=== PATIENT | female | born 1980 | race Caucasian/White ===

== ENCOUNTER 2019-06-23 12:08 | Emergency (ER) | payer BC, OTHER ==
[~2019-06-23] VITALS: Ht 160 cm; Wt 57.0 kg
[2019-06-23] MEDS ORDERED: AMOX875T2 (12:17)
[2019-06-23] MEDS ORDERED: DECONGESTANT (12:17)
[2019-06-23] MEDS ORDERED: TYLENOL 1 GM (12:17)
[2019-06-23] MEDS ORDERED: ALEVE (12:17)
[2019-06-23] MEDS ORDERED: diphenhydrAMINE INJ 50MG/ML VIAL (J1200) IV STA (14:09)
[2019-06-23] MEDS ORDERED: NS 1,000 ML IV ONE (14:15)
[2019-06-23] MEDS ORDERED: METOCLOPRAMIDE INJ 10MG/2ML VIAL (J2765) IV ONE (14:15)
[2019-06-23] MEDS ORDERED: KETOROLAC 30 MG/ML VIAL (J1885) IV ONE (14:15)
[2019-06-23 14:48] LABS: BASO % 0.6 % (0.0-1.0); EOS # 0.1 10^3/uL (0.0-0.5); EOS % 1.9 % (0.0-3.0); HEMATOCRIT 40.2 % (36.0-47.0); HEMOGLOBIN 13.4 g/dl (12.0-15.5); LYMPH # 1.7 10^3/uL (1.5-5.0); MEAN CORPUSCULAR HEMOGLOBIN 31.6 pg (27.0-33.0); MEAN CORPUSCULAR HGB CONC 33.3 g/dl (32.0-36.5); MEAN CORPUSCULAR VOLUME 94.8 fl (80.0-96.0); MONO # 0.3 10^3/uL (0.0-0.8); MONO % 4.9 % (0.0-5.0); NEUTROPHILS # 4.2 10^3/uL (1.5-8.5); NEUTROPHILS % 66.4 % (36.0-66.0); PLATELET COUNT, AUTOMATED 229 10^3/uL (150-450); RED BLOOD COUNT 4.24 10^6/uL (4.00-5.40); WHITE BLOOD COUNT 6.4 10^3/uL (4.0-10.0)
--- NOTE | 2019-06-23 14:53 | REPVR ---
PROCEDURE INFORMATION: Exam: CT Maxillofacial Without Contrast, Sinus Exam date and time: 06/23/2019 2:31 PM Age: 39 years old Clinical indication: Face pain; Additional info: Severe headache; ? Sinusitis/facial pain TECHNIQUE: Imaging protocol: CT Maxillofacial without contrast. Focus on the sinuses. Radiation optimization: All CT scans at this facility use at least one of these dose optimization techniques: automated exposure control; mA and/or kV adjustment per patient size (includes targeted exams where dose is matched to clinical indication); or iterative reconstruction. COMPARISON: No relevant prior studies available. FINDINGS: Sinuses: There is mild mucosal thickening in paranasal sinuses. No sinus air-fluid levels. There is small retention cysts or polyps in bilateral maxillary and left sphenoid sinuses and in right posterior ethmoid air cell. Frontal sinuses: Nasofrontal recesses are clear. Sphenoid and ethmoid sinuses: Sphenoid ethmoidal recesses are clear. Maxillary sinuses: Ostiomeatal complexes are clear. Orbits: Orbits are normal. Globes are unremarkable. No evidence of mass. Auditory system: Mastoid air cells and middle ear cavities are well developed and well aerated. Nasal cavity/Septum: Nasal septum is deviated to left. Soft tissues: Unremarkable. Bones/joints: Unremarkable. No acute fracture. IMPRESSION: Mild mucosal sinus disease. Electronically signed by: Jolanta James On 06/23/2019 14:53:25 PM
--- NOTE | 2019-06-23 14:54 | REPVR ---
PROCEDURE INFORMATION: Exam: CT Head Without Contrast Exam date and time: 06/23/2019 2:31 PM Age: 39 years old Clinical indication: Pain; Headache; Additional info: Severe headache; ? Sinusitis/facial pain TECHNIQUE: Imaging protocol: Computed tomography of the head without contrast. Radiation optimization: All CT scans at this facility use at least one of these dose optimization techniques: automated exposure control; mA and/or kV adjustment per patient size (includes targeted exams where dose is matched to clinical indication); or iterative reconstruction. COMPARISON: No relevant prior studies available. FINDINGS: Brain: There is no acute intracranial hemorrhage. No extra-axial fluid collection. No evidence of acute infarct. Orta white differentiation is intact. There is no evidence of mass. There is no mass effect or midline shift. Ventricles: No ventriculomegaly. Bones/joints: No acute fracture. Sinuses: There is mild mucosal thickening in paranasal sinuses. Please see maxillofacial CT. Mastoid air cells: No significant mastoid effusion. Soft tissues: Unremarkable as visualized. IMPRESSION: No evidence of acute intracranial abnormality. Electronically signed by: Jolanta James On 06/23/2019 14:54:02 PM
[2019-06-23 15:01] LABS: BLOOD UREA NITROGEN 13 MG/DL (7-18); C REACTIVE PROTEIN QUANTITATIV < 0.30 MG/DL (0.00-0.30); CALCIUM LEVEL 9.7 MG/DL (8.5-10.1); CARBON DIOXIDE LEVEL 28 MEQ/L (21-32); CHLORIDE LEVEL 108 MEQ/L (98-107); CREATININE FOR GFR 0.69 MG/DL (0.55-1.30); GLOMERULAR FILTRATION RATE > 60.0 (>60); GLUCOSE, FASTING 97 MG/DL (70-100); POTASSIUM SERUM 4.3 MEQ/L (3.5-5.1); SODIUM LEVEL 139 MEQ/L (136-145)
[2019-06-23 15:20] VITALS: BP 123/58
[2019-06-23 15:24] LABS: ERYTHROCYTE SEDIMENTATION RATE 3 mm/hr (0-20)
[2019-06-23] MEDS ORDERED: AUGM875T28 PO (15:28)
== END 2019-06-23 16:14 | disposition home or self-care (01) ==
LOC: M ED 12:08
DX: J01.90 Acute sinusitis, unspecified (principal); R51 Headache
CPT/HCPCS: 70450; 70486; 80048; 85025; 85652; 86140; 96361; 96374; 96375; 99284; J1200; J1885; J2765

== ENCOUNTER 2019-08-26 08:20 | Outpatient (CLI) | payer OTHER ==
[~2019-08-26] VITALS: Ht 160 cm; Wt 57.0 kg
[~2019-08-26 08:20] MED LIST: ALEVE; AMOX875T2; AUGM875T28 PO; DECONGESTANT; TYLENOL 1 GM
[2019-08-26 08:30] VITALS: BP 127/73
[2019-08-26] MEDS ORDERED: methylPREDNISolone 1,000 MG, VIAL MATE ADAPTER 1 EACH in D5W 250 ML IV ONE (08:30)
[2019-08-26 10:55] VITALS: BP 103/59
[2019-08-26 11:20] VITALS: BP 106/53
[2019-08-28] MEDS ORDERED: TIZA2CAP PO (09:04)
[2019-08-28] MEDS ORDERED: QC A650T3 PO (09:04)
[2019-08-28] MEDS ORDERED: CARB10TACH PO (09:04)
== END 2019-08-26 11:20 | disposition home or self-care (01) ==
LOC: M INFU 08:20
PROVIDERS: ATTEND Psychiatry & Neurology Neurology
DX: G37.3 Acute transverse myelitis in demyelinating disease of central nervous system (principal)

== ENCOUNTER 2019-08-27 08:22 | Outpatient (CLI) | payer OTHER ==
[~2019-08-27] VITALS: Ht 160 cm; Wt 57.0 kg
[2019-08-27 08:25] VITALS: BP 122/69
[2019-08-27] MEDS ORDERED: methylPREDNISolone 1,000 MG, VIAL MATE ADAPTER 1 EACH in D5W 250 ML IV ONE (08:30)
[2019-08-27 10:00] VITALS: BP 111/55
[2019-08-28] MEDS ORDERED: TIZA2CAP PO (09:04)
[2019-08-28] MEDS ORDERED: CARB10TACH PO (09:04)
[2019-08-28] MEDS ORDERED: QC A650T3 PO (09:04)
== END 2019-08-27 10:00 | disposition home or self-care (01) ==
LOC: M INFU 08:22
PROVIDERS: ATTEND Psychiatry & Neurology Neurology
DX: G37.3 Acute transverse myelitis in demyelinating disease of central nervous system (principal)
CPT/HCPCS: 96365; J2930

== ENCOUNTER 2019-08-29 09:56 | Outpatient (CLI) | payer OTHER ==
[~2019-08-29] VITALS: Ht 160 cm; Wt 55.0 kg
[~2019-08-29 09:56] MED LIST changes: +CARB10TACH PO; +QC A650T3 PO; +TIZA2CAP PO
[2019-08-29 10:05] VITALS: BP 129/59
[2019-08-29] MEDS ORDERED: methylPREDNISolone 1,000 MG, VIAL MATE ADAPTER 1 EACH in D5W 250 ML IV ONE (11:00)
== END 2019-08-29 13:10 | disposition home or self-care (01) ==
LOC: M OPCLI4PV 09:56 → M MS5PR 10:01 → M OPCLI4PV 13:10
PROVIDERS: ATTEND Psychiatry & Neurology Neurology
DX: G37.3 Acute transverse myelitis in demyelinating disease of central nervous system (principal)
CPT/HCPCS: 96374; J2930

== ENCOUNTER 2019-10-30 15:00 | Outpatient (CLI) | payer OTHER ==
[~2019-10-30] VITALS: Ht 162.6 cm; Wt 56.7 kg
[2019-10-30 15:30] VITALS: BP 130/64
[2019-10-30] MEDS ORDERED: methylPREDNISolone 1,000 MG, VIAL MATE ADAPTER 1 EACH in D5W 250 ML IV ONE (16:00)
[2019-10-30] MEDS ORDERED: NEUR100C PO (16:49)
[2019-10-30] MEDS ORDERED: UNIS25TA3 PO (16:50)
[2019-10-30 17:00] VITALS: BP 110/68
== END 2019-10-30 17:00 | disposition home or self-care (01) ==
LOC: M INFU 15:00
PROVIDERS: ATTEND Psychiatry & Neurology Neurology
DX: G35 Multiple sclerosis (principal)
CPT/HCPCS: 96365; J2930

== ENCOUNTER 2019-10-31 14:54 | Outpatient (CLI) | payer OTHER ==
[~2019-10-31] VITALS: Ht 162.6 cm; Wt 57.7 kg
[~2019-10-31 14:54] MED LIST changes: +NEUR100C PO; +UNIS25TA3 PO
[2019-10-31] MEDS ORDERED: methylPREDNISolone 1,000 MG, VIAL MATE ADAPTER 1 EACH in D5W 250 ML IV ONE (16:00)
[2019-10-31 16:13] VITALS: BP 110/59
== END 2019-10-31 17:20 | disposition home or self-care (01) ==
LOC: M OPCLI5PR 14:54 → M MSPAV 14:57 → M OPCLI5PR 17:20
PROVIDERS: ATTEND Psychiatry & Neurology Neurology
DX: G37.3 Acute transverse myelitis in demyelinating disease of central nervous system (principal)
CPT/HCPCS: 96374; J2930

== ENCOUNTER 2019-11-01 13:54 | Outpatient (CLI) | payer OTHER ==
[~2019-11-01] VITALS: Ht 162.6 cm; Wt 56.7 kg
[2019-11-01 14:00] VITALS: BP 110/56
[2019-11-01] MEDS ORDERED: methylPREDNISolone 1,000 MG, VIAL MATE ADAPTER 1 EACH in D5W 250 ML IV ONE (15:00)
== END 2019-11-01 15:34 | disposition home or self-care (01) ==
LOC: M OPCLI5PR 13:54 → M MSPAV 14:00 → M OPCLI5PR 15:34
PROVIDERS: ATTEND Psychiatry & Neurology Neurology
DX: G35 Multiple sclerosis (principal)
CPT/HCPCS: 96365; J2930

== ENCOUNTER 2019-11-02 14:58 | Outpatient (CLI) | payer OTHER ==
[~2019-11-02] VITALS: Ht 162.6 cm; Wt 56.8 kg
[2019-11-02] MEDS ORDERED: methylPREDNISolone 1,000 MG, VIAL MATE ADAPTER 1 EACH in D5W 250 ML IV ONE (15:15)
[2019-11-02 15:37] VITALS: BP 102/55
[2019-11-02 16:35] VITALS: BP 107/56
== END 2019-11-03 16:15 | disposition home or self-care (01) ==
LOC: M INFU 14:58
PROVIDERS: ATTEND Psychiatry & Neurology Neurology
DX: G37.3 Acute transverse myelitis in demyelinating disease of central nervous system (principal)
CPT/HCPCS: 96365; J2930

== ENCOUNTER → 2019-11-03 | Outpatient (CLI) | payer OTHER ==
[~2019-11-03] VITALS: Ht 162.6 cm; Wt 56.8 kg
[~2019-11-03] MED LIST changes: +methylPREDNISolone 1,000 MG, VIAL MATE ADAPTER 1 EACH in D5W 250 ML IV ONE
[2019-11-03 15:14] VITALS: BP 98/56
[2019-11-03 16:15] VITALS: BP 112/59
== END ==
LOC: M INFU 14:56
PROVIDERS: ATTEND Psychiatry & Neurology Neurology
DX: G35 Multiple sclerosis (principal)
CPT/HCPCS: 96365; J2930

== ENCOUNTER → 2020-05-03 | Outpatient (POV) | payer OTHER ==
[~2020-05-03] MED LIST changes: -methylPREDNISolone 1,000 MG, VIAL MATE ADAPTER 1 EACH in D5W 250 ML IV ONE
--- NOTE | 2020-05-05 15:18 | IRCOV ---
[facility] IR Consult Office Visit IR Consult Office Visit DATE: May 03, 2020 Patient agreed to this telephone consultation. I spent 30 minutes reviewing patient's records and talking to the patient. REASON FOR CONSULTATION/CHIEF COMPLAINT: Pelvic congestion syndrome. HISTORY OF PRESENT ILLNESS: 40-year-old female describes 11 years of pain over the left SI joint. She has 4 children and states the symptoms are best during and worsen after delivery. More recently she has suffered 4 acute flareups where the pain is so bad she is unable to walk and had to go to the ER. She has tried physical therapy, chiropractors, left SI joint steroid injection and is due to see the pain clinic. Patient says none of these interventions helped and the steroid injection worsened her symptoms. Patient describes the pain is there all the time and is not worse with her menstrual cycles. She feels the pain is worse after a hot bath or workout or if she is on her feet for a long time. She describes pain with intercourse and deep dyspareunia. At times she feels her whole left leg feels swollen and the pain goes down her left buttock, down the back of the thigh to her feet. She denies prior history of DVT. She had an MRI which showed minimal degenerative changes in the back and she is due to see pain for any possible intervention. On her outside MRI pelvis, she was diagnosed with pelvic congestion syndrome and she is referred for evaluation. She was diagnosed with multiple sclerosis in October 2019 and states she's had a couple of flare ups of MS where she has numbness over her right hand and right foot. Patient has 4 children ages 2, 4, 8 and 11 and describes one prior ectopic for which she had left fallopian tube surgery 8 years ago. ALLERGIES: Please see below. HOME MEDICATIONS: Please see below. PAST MEDICAL HISTORY: Multiple sclerosis PAST SURGICAL HISTORY: Left fallopian tube surgery Left SI joint steroid injection FAMILY HISTORY: Noncontributory. SOCIAL HISTORY: Nonsmoker. Denies alcohol or drugs. REVIEW OF SYSTEMS: Otherwise negative. PHYSICAL EXAMINATION: No video on patient side. LABORATORY DATA: Please see below. Imaging: Outside MRI pelvis is not available for review. I reviewed the report which describes findings suggestive of pelvic congestion syndrome. ASSESSMENT/PLAN: 40-year-old female with decade long history of pain over the left lower back, refractory to physical therapy, chiropractor intervention and left SI joint steroid injection. Patient is due to see the pain clinic and I wonder if it could be pathology related to L5-S1 and/or facet disease. Deep dyspareunia and pelvic pressure or pain can happen with pelvic congestion syndrome. As her MRI is report is positive for this, we can confirm this with the venography. If she does have gonadal vein reflux, this may be treated with gonadal vein embolization which may help her symptoms. At the same time we can assess her left iliac vein for any stenosis or occlusion. We discussed the risks and benefits of the procedure including that symptoms may or may not be related to pelvic congestion and or may be compounded by other MSK causes for this pain. Patient understands and would like to further investigate this avenue. Therefore, we have scheduled the patient for venography and gonadal vein embolization if indicated. Thank you for this referral. CC Dr. Lawrence Barriga Allergies Coded Allergies: No Known Allergies (Unverified , 06/23/19) Home Medications Scheduled Acetaminophen (Acetaminophen 8 Hour), 650 MG PO TID, (Reported) Carbamazepine (Carbamazepine), 100 MG PO DAILY, (Reported) Tizanidine HCl (Tizanidine HCl), 1 CAP PO TID, (Reported) Scheduled PRN Doxylamine Succinate (Unisom Sleep Aid), 25 MG PO QHSP PRN for SLEEP, (Reported) Gabapentin (Neurontin), 1 CAP PO TID PRN for HEADACHE or DISCOMFORT, (Reported) DENILSON GREGG MD May 05, 2020 15:18
== END ==
LOC: M TMIRPOV 13:44
PROVIDERS: ATTEND Radiology Diagnostic Radiology
DX: N94.89 Other specified conditions associated with female genital organs and menstrual cycle (principal); N94.10 Unspecified dyspareunia

== ENCOUNTER → 2020-05-17 | Outpatient (POV) | payer OTHER ==
--- NOTE | 2020-05-19 10:28 | IRPN ---
[facility] IR Progress Note IR Progress Note DATE: May 17, 2020 Patient agreed to this telephone follow-up. I spent 10 minutes talking to the patient. FOLLOW-UP: 40-year-old female with pelvic congestion syndrome. We planned for pelvic congestion syndrome treatment with embolization however her insurance company has denied this treatment. We discussed options of internal and external appeal. Patient asked for her MRI report to be sent to her house, we will do this. We will to provide any supporting documentation on pelvic congestion treatment, if the patient requires this for the appeal. IMPRESSION: 40-year-old female with excruciating pain and pelvic congestion syndrome . Currently her insurance company has denied pelvic congestion syndrome treatment with embolization and therefore the scheduled procedure is canceled. Patient will let us know if she needs any supporting documentation for her appeal. Thank you for this referral cc Dr. Bravo Fish Allergies Coded Allergies: No Known Allergies (Unverified , 06/23/19) DENILSON GREGG MD May 19, 2020 10:28
== END ==
LOC: M TMIRPOV 13:12
PROVIDERS: ATTEND Radiology Diagnostic Radiology
DX: N94.89 Other specified conditions associated with female genital organs and menstrual cycle (principal); R10.2 Pelvic and perineal pain

== ENCOUNTER 2020-06-28 14:32 | Emergency (ER) | payer OTHER ==
[~2020-06-28] VITALS: Ht 162.6 cm; Wt 57.3 kg
[2020-06-28] MEDS ORDERED: GABA-1171 PO (14:41)
[2020-06-28] MEDS ORDERED: GLAT40IN SC (14:41)
[2020-06-28] MEDS ORDERED: RA T500C2 PO (15:55)
[2020-06-28] MEDS ORDERED: D-40TAB2 PO (15:55)
[2020-06-28] MEDS ORDERED: VITMTA PO (15:55)
[2020-06-28] MEDS ORDERED: B-COTAB10 PO (15:55)
[2020-06-28] MEDS ORDERED: UNIS25TA3 PO (15:55)
[2020-06-28] MEDS ORDERED: MAGN400T3 PO (15:55)
[2020-06-28] MEDS ORDERED: PROHANCE 279.3MG/ML 15ML VIAL As Ordered ONE (16:23)
[2020-06-28 16:25] LABS: BASO % 0.8 % (0.0-1.0); EOS # 0.3 10^3/uL (0.0-0.5); HEMATOCRIT 38.4 % (36.0-47.0); HEMOGLOBIN 12.6 g/dl (12.0-15.5); LYMPH # 1.6 10^3/uL (1.5-5.0); LYMPH % 33.5 % (24.0-44.0); MEAN CORPUSCULAR HGB CONC 32.8 g/dl (32.0-36.5); MEAN CORPUSCULAR VOLUME 94.6 fl (80.0-96.0); MONO # 0.4 10^3/uL (0.0-0.8); NEUTROPHILS # 2.4 10^3/uL (1.5-8.5); NEUTROPHILS % 50.7 % (36.0-66.0); PLATELET COUNT, AUTOMATED 215 10^3/uL (150-450); RED BLOOD COUNT 4.06 10^6/uL (4.00-5.40); WHITE BLOOD COUNT 4.7 10^3/uL (4.0-10.0)
[2020-06-28 16:32] LABS: INR 0.92; PARTIAL THROMBOPLASTIN TIME 28.5 SECONDS (24.2-38.5); PROTHROMBIN TIME 12.5 SECONDS (12.5-14.3)
[2020-06-28 16:33] LABS: ALBUMIN 4.3 GM/DL (3.2-5.2); ALT/SGPT 23 U/L (12-78); BILIRUBIN,DIRECT 0.1 MG/DL (0.0-0.2); BILIRUBIN,TOTAL 0.4 MG/DL (0.2-1.0); BLOOD UREA NITROGEN 18 MG/DL (7-18); CALCIUM LEVEL 9.5 MG/DL (8.5-10.1); CARBON DIOXIDE LEVEL 30 MEQ/L (21-32); CHLORIDE LEVEL 107 MEQ/L (98-107); CREATININE FOR GFR 0.67 MG/DL (0.55-1.30); GLOMERULAR FILTRATION RATE > 60.0 (>60); GLUCOSE, FASTING 91 MG/DL (70-100); POTASSIUM SERUM 3.8 MEQ/L (3.5-5.1); SODIUM LEVEL 141 MEQ/L (136-145); TOTAL PROTEIN 7.2 GM/DL (6.4-8.2)
[2020-06-28 16:34] LABS: HCG, SERUM QUALITATIVE NEGATIVE (NEGATIVE)
[2020-06-28 16:41] LABS: VITAMIN B12 LEVEL 1117 PG/ML (247-911)
[2020-06-28 16:47] LABS: ERYTHROCYTE SEDIMENTATION RATE 4 mm/hr (0-20)
[2020-06-28] MEDS ORDERED: ACETAMINOPHEN 500 MG TAB PO ONE (18:30)
--- NOTE | 2020-06-28 18:49 | REPVR ---
PROCEDURE INFORMATION: Exam: MR Head Without and With Contrast Exam date and time: 06/28/2020 5:30 PM Age: 40 years old Clinical indication: Other: Ms flair, visual disturbance TECHNIQUE: Imaging protocol: MR of the head without and with intravenous contrast. 3D rendering (Not supervised by radiologist): MIP and/or 3D reconstructed images were created by the technologist. Contrast material: PROHANCE; Contrast volume: 10 ml; Contrast route: INTRAVENOUS (IV); COMPARISON: CT Head without contrast 06/23/2019 2:28 PM FINDINGS: Brain: No acute infarct or active demyelination identified on the T2 weighted imaging. There is a focus of T2 shine through in the left raymundo radiata. The T2 weighted imaging demonstrates a few small hyperintense lesions in the deep and subcortical white matter, not specific for, but considered consistent with the provided diagnosis of multiple sclerosis. The periventricular lesions do appear mildly elongated in morphology, best appreciated on the sagittal FLAIR sequence. Cerebral and cerebellar volume are preserved for age. No enhancing lesions identified. Cerebral ventricles: Normal. No ventriculomegaly. Bones/joints: Unremarkable. Paranasal sinuses: Moderate anterior ethmoid sinus mucosal thickening. Mild bilateral maxillary and right sphenoid sinus mucosal thickening. No air-fluid levels. Mastoid air cells: Normal as visualized. No mastoid effusion. Orbital cavity: Unremarkable. Soft tissues: Unremarkable. IMPRESSION: No evidence of active demyelination. Electronically signed by: Nano Mcpherson On 06/28/2020 18:49:47 PM
--- NOTE | 2020-06-28 18:56 | REPVR ---
PROCEDURE INFORMATION: Exam: MR Orbit Without and With Contrast Exam date and time: 06/28/2020 5:30 PM Age: 40 years old Clinical indication: Visual changes or disturbances; Discomfort; Additional info: Ms flair, visual disturbance TECHNIQUE: Imaging protocol: MR Orbit was performed without and with intravenous contrast. 3D rendering (Not supervised by radiologist): MIP and/or 3D reconstructed images were created by the technologist. Contrast material: PROHANCE; Contrast volume: 10 ml; Contrast route: INTRAVENOUS (IV); COMPARISON: CT Maxilofacial w/out contrast 06/23/2019 2:28 PM FINDINGS: Orbital cavity: No optic nerve edema identified on the fluid sensitive imaging. No obvious enhancement. Please note, the postcontrast sequences are quite motion degraded. Globes are unremarkable. Paranasal sinuses: Scattered chronic sinusitis. Nasal cavity: Chronic apex left deviation and spurring of the nasal septum. Soft tissues: Unremarkable. IMPRESSION: 1. Images are motion degraded, in particular, motion artifacts limit the postcontrast images. 2. No evidence of optic neuritis based on the noncontrast imaging. Electronically signed by: Nano Mcpherson On 06/28/2020 18:56:28 PM
[2020-06-28] MEDS ORDERED: PRED10TA2 PO (20:02)
[2020-06-28] MEDS ORDERED: predniSONE 20 MG TAB PO ONE (20:05)
[2020-06-28 20:15] VITALS: BP 127/69
== END 2020-06-28 20:42 | disposition home or self-care (01) ==
LOC: M ED 14:32
DX: G35 Multiple sclerosis (principal)
CPT/HCPCS: 70543; 70553; 80048; 80076; 81001; 82607; 84703; 85025; 85610; 85652; 85730; 86140; 87086; 93041; 94760; 99285; A9576

== ENCOUNTER → 2022-09-04 | Outpatient (CLI) | payer OTHER ==
[~2022-09-04] MED LIST changes: +B-COTAB10 PO; +D-40TAB2 PO; +GABA-1171 PO; +GLAT40IN SC; +LIDOCAINE 1% MDV 20ML VIAL As Ordered ONE; +MAGN400T33 PO; +PRED10TA2 PO; +RA T500C2 PO; +VITMTA PO; +methylPREDNISolone SUSP 40MG/ML 1ML VIAL (DEPO MEDROL) As Ordered ONE
== END ==
LOC: M IRPRO 14:42
PROVIDERS: ATTEND Physician Assistant Surgical
DX: M75.21 Bicipital tendinitis, right shoulder (principal)
CPT/HCPCS: 20550; 76942; J1030

== ENCOUNTER 2022-11-22 13:33 | Emergency (ER) | payer OTHER ==
[~2022-11-22] VITALS: Ht 162.6 cm; Wt 51.3 kg
[~2022-11-22 13:33] MED LIST changes: -LIDOCAINE 1% MDV 20ML VIAL As Ordered ONE; -methylPREDNISolone SUSP 40MG/ML 1ML VIAL (DEPO MEDROL) As Ordered ONE
[2022-11-22] MEDS ORDERED: OFAT20PE SQ (13:52)
[2022-11-22] MEDS ORDERED: NS 500 ML IV ONE (18:20)
[2022-11-22] MEDS ORDERED: methylPREDNISolone 125MG 2ML VIAL IV ONE (18:20)
[2022-11-22 19:33] LABS: BASO # 0.1 10^3/uL (0.0-0.2); EOS # 0.1 10^3/uL (0.0-0.5); EOS % 2.1 % (0.0-3.0); HEMATOCRIT 36.7 % (36.0-47.0); HEMOGLOBIN 12.1 g/dl (12.0-15.5); LYMPH % 37.6 % (24.0-44.0); MEAN CORPUSCULAR HEMOGLOBIN 31.8 pg (27.0-33.0); MEAN CORPUSCULAR VOLUME 96.3 fl (80.0-96.0); MONO # 0.5 10^3/uL (0.0-0.8); MONO % 8.6 % (2.0-8.0); NEUTROPHILS # 2.7 10^3/uL (1.5-8.5); NEUTROPHILS % 50.5 % (36.0-66.0); PLATELET COUNT, AUTOMATED 181 10^3/uL (150-450); RED BLOOD COUNT 3.81 10^6/uL (4.00-5.40); WHITE BLOOD COUNT 5.2 10^3/uL (4.0-10.0)
[2022-11-22 20:10] LABS: BLOOD UREA NITROGEN 13 MG/DL (9-23); CALCIUM LEVEL 8.7 MG/DL (8.5-10.1); CARBON DIOXIDE LEVEL 24 MMOL/L (20-31); CHLORIDE LEVEL 109 MMOL/L (98-107); CREATININE FOR GFR 0.61 MG/DL (0.55-1.30); GLOMERULAR FILTRATION RATE > 60.0 (>58); GLUCOSE, FASTING 83 MG/DL (60-100); POTASSIUM SERUM 3.8 MMOL/L (3.5-5.1); SODIUM LEVEL 143 MMOL/L (136-145)
[2022-11-22 20:13] LABS: VITAMIN B12 LEVEL 780 PG/ML (211-911)
[2022-11-22] MEDS ORDERED: LIDOCAINE 5% (LIDODERM) PATCH TD ONE (20:55)
[2022-11-22] MEDS ORDERED: ACETAMINOPHEN 325 MG TAB PO ONE (20:55)
[2022-11-22] MEDS ORDERED: KETOROLAC 30 MG/ML 1ML VIAL IV ONE (20:55)
[2022-11-22] MEDS ORDERED: TRAM50TA2 PO (21:57)
[2022-11-22] MEDS ORDERED: METH-1165 PO (21:57)
[2022-11-22] MEDS ORDERED: traMADol 50 MG TAB PO ONE (22:20)
[2022-11-22] MEDS ORDERED: methocarbamoL 750 MG TAB PO ONE (22:20)
[2022-11-22 22:35] VITALS: BP 116/61; TEMP 98
[2022-11-22 22:40] VITALS: O2SAT 99
== END 2022-11-22 22:47 | disposition home or self-care (01) ==
LOC: M ED 13:33
DX: M54.2 Cervicalgia (principal); R20.2 Paresthesia of skin; G35 Multiple sclerosis; G50.0 Trigeminal neuralgia; Z79.899 Other long term (current) drug therapy; Z88.1 Allergy status to other antibiotic agents
CPT/HCPCS: 70551; 72141; 80048; 82607; 85025; 96374; 96375; 99284; J1885; J2930

== ENCOUNTER 2023-01-06 16:32 | Emergency (ER) | payer OTHER ==
[~2023-01-06] VITALS: Ht 162.6 cm; Wt 58.9 kg
[~2023-01-06 16:32] MED LIST changes: +METH-1165 PO; +OFAT20PE SQ; +TRAM50TA2 PO
[2023-01-06] MEDS ORDERED: ECOT81TA5 PO (16:40)
[2023-01-06] MEDS ORDERED: IBUPROFEN 400MG TAB PO ONE (18:10)
[2023-01-06] MEDS ORDERED: IBUP200C33 PO (18:13)
[2023-01-06 18:20] VITALS: BP 133/66; TEMP 97.9; O2SAT 100
== END 2023-01-06 18:32 | disposition home or self-care (01) ==
LOC: M ED 16:32
DX: S63.602A Unspecified sprain of left thumb, initial encounter (principal); G35 Multiple sclerosis; L05.91 Pilonidal cyst without abscess; Y92.830 Public park as the place of occurrence of the external cause; Z88.8 Allergy status to other drugs, medicaments and biological substances; Z79.82 Long term (current) use of aspirin; Z79.810 Long term (current) use of selective estrogen receptor modulators (SERMs); Z79.899 Other long term (current) drug therapy; X58.XXXA Exposure to other specified factors, initial encounter

== ENCOUNTER → 2023-01-28 | Outpatient (CLI) | payer OTHER ==
[~2023-01-28] MED LIST changes: +ECOT81TA5 PO; +IBUP200C33 PO; +LIDOCAINE 1% MDV 20ML VIAL As Ordered ONE; +methylPREDNISolone SUSP 40MG/ML 1ML VIAL (DEPO MEDROL) As Ordered ONE
== END ==
LOC: M IRPRO 11:03
PROVIDERS: ATTEND Physician Assistant Surgical
DX: M75.21 Bicipital tendinitis, right shoulder (principal)
CPT/HCPCS: 20550; 76942; J1030

== ENCOUNTER → 2023-01-31 | Outpatient (CLI) | payer OTHER ==
[~2023-01-31] MED LIST changes: +E-Z-GAS II EFFERVESCENT PACKET (SODIUM BICARB./CITRIC ACID/SIMETHICONE) As Ordered ONE; +E-Z-HD 98% w/w 340GM SUSP BTL As Ordered ONE; +E-Z-PAQUE 96% w/w SUSP 176GM BTL As Ordered ONE; -LIDOCAINE 1% MDV 20ML VIAL As Ordered ONE; -methylPREDNISolone SUSP 40MG/ML 1ML VIAL (DEPO MEDROL) As Ordered ONE
== END ==
LOC: M RAD 08:08
PROVIDERS: ATTEND Dentist Orthodontics and Dentofacial Orthopedics
DX: R07.0 Pain in throat (principal); R13.10 Dysphagia, unspecified; K44.9 Diaphragmatic hernia without obstruction or gangrene

== ENCOUNTER → 2023-02-22 | Outpatient (CLI) | payer OTHER ==
[~2023-02-22] MED LIST changes: -E-Z-GAS II EFFERVESCENT PACKET (SODIUM BICARB./CITRIC ACID/SIMETHICONE) As Ordered ONE; -E-Z-HD 98% w/w 340GM SUSP BTL As Ordered ONE; -E-Z-PAQUE 96% w/w SUSP 176GM BTL As Ordered ONE
== END ==
LOC: M WHC 13:28
PROVIDERS: ATTEND Dentist Orthodontics and Dentofacial Orthopedics
DX: R13.10 Dysphagia, unspecified (principal); R07.0 Pain in throat; E04.2 Nontoxic multinodular goiter

== ENCOUNTER → 2025-03-08 | Outpatient (CLI) | payer OTHER ==
[~2025-03-08] MED LIST changes: -RA T500C2 PO; +TURM500C10 PO
== END ==
LOC: M RAD 12:35
PROVIDERS: ATTEND Family Medicine
DX: R22.1 Localized swelling, mass and lump, neck (principal)